=== PATIENT | male | born 1995 | race Caucasian/White ===

== ENCOUNTER 2018-09-24 13:54 | Emergency (ER) | payer MEDICAID ==
[2018-09-24 14:09] VITALS: BP 129/79
--- NOTE | 2018-09-24 15:05 | UC ---
Abdominal Pain Male HPI - HPI Summary HPI Summary: 23-year-old male comes in with a three-day complaint of epigastric pain and decreased appetite. Today's girlfriend noticed that his eyes appeared to be yellow. He's had a hard time telling whether or not the skin might be more yellow than usual. Said no prior history of this. The epigastric pain is mild. No fevers he has had an occasional chill. Has not nose any change in his urine. Said decreased stools. Has not seen any abnormal stools. No prior abdominal surgeries. No history of hepatitis is not on any medications. He does drink alcohol occasionally but not daily. - History of Current Complaint Chief Complaint: UCAbdominalPain Stated Complaint: YELLOW OF EYES NAUSEA Time Seen by Provider: 09/24/18 14:14 Pain Intensity: 3 - Allergies/Home Medications Allergies/Adverse Reactions: Allergies Allergy/AdvReac Type Severity Reaction Status Date / Time No Known Allergies Allergy Verified 09/24/18 14:08 Home Medications: Home Medications NK [No Home Medications Reported] 09/24/18 [History Confirmed 09/24/18] PMH/Surg Hx/FS Hx/Imm Hx Previously Healthy: Yes - Surgical History Surgical History: Yes Surgery Procedure, Year, and Place: left knee acl - Family History Known Family History: Positive: Non-Contributory - Social History Alcohol Use: Weekly Substance Use Type: Marijuana Smoking Status (MU): Never Smoked Tobacco Review of Systems All Other Systems Reviewed And Are Negative: Yes Constitutional: Positive: Chills Skin: Positive: Other - SEE HPI Eyes: Positive: Other - SEE HPI ENT: Positive: Negative Respiratory: Positive: Negative Cardiovascular: Positive: Negative Gastrointestinal: Positive: Abdominal Pain, Nausea Genitourinary: Positive: Negative Motor: Positive: Negative Neurovascular: Positive: Negative Musculoskeletal: Positive: Negative Neurological: Positive: Negative Psychological: Positive: Negative Is Patient Immunocompromised?: No Physical Exam Triage Information Reviewed: Yes Appearance: Well-Appearing, No Pain Distress, Well-Nourished Vital Signs: Initial Vital Signs Temp 98.2 F 09/24/18 14:04 Pulse 82 09/24/18 14:04 Resp 18 09/24/18 14:04 BP 129/79 09/24/18 14:04 Pulse Ox 100 09/24/18 14:04 Vital Signs Reviewed: Yes Eyes: Positive: Other: - MILD SCLERAL INJECTION ENT: Positive: Pharynx normal Neck exam: Normal Neck: Positive: Supple Respiratory: Positive: Lungs clear, Normal breath sounds, No respiratory distress Cardiovascular: Positive: RRR Abdomen Description: Positive: Soft, Other: - MILD TENDERNESS TO PALPATION IN EPIGASTRIUM. NO REBOUND. NO LOWER ABDOMINAL PAIN.. Negative: CVA Tenderness (R) , CVA Tenderness (L) Musculoskeletal Exam: Normal Musculoskeletal: Positive: Strength Intact, ROM Intact Neurological Exam: Normal Neurological: Positive: Alert, Muscle Tone Normal Psychological Exam: Normal Psychological: Positive: Age Appropriate Behavior Skin: Positive: Other - POSSIBLE MILD JAUNDICE Abd Pain Male Course/Dx - Course Course Of Treatment: Patient is from out of town and is visiting for the week. No prior history of jaundice or abdominal pain. At this time we've sent for labs CBC CMP total and direct bilirubin PT/INR lipase an acute hepatitis panel. Plan will be to discuss any abnormal lab results with the patient and determine appropriate follow-up. - Differential Dx/Clinical Impression Provider Diagnosis: Jaundice, Epigastric abdominal pain Discharge - Sign-Out/Discharge Documenting (check all that apply): Patient Departure All imaging exams completed and their final reports reviewed: No Studies - Discharge Plan Condition: Stable Disposition: HOME Patient Education Materials: Jaundice (ED), Epigastric Pain (ED) Referrals: [facility] [Outside] Additional Instructions: FOLLOW UP WITH YOUR DOCTOR IF NOT COMPLETELY IMPROVED. GET RECHECKED FOR ANY WORSENING OF YOUR CONDITION; PAIN, FEVER, YOU FEEL ILL OR QUESTIONS OR CONCERNS. - Billing Disposition and Condition Condition: STABLE Disposition: Home
--- NOTE | 2018-09-25 09:36 | UC ---
- Results/Orders Results/Orders: Called patient to review labs His number: Regarding his bilirubin is elevated - remaining labs are unremarkable. Here in town for 1 week and planning to go back to [place] in a few days - has a primary care physician in [facility] Told him of his results and recommended as long as he does not appear jaundice, symptoms resolved - no dark urine, light colored stools that he can follow up with his primary next week to repeat his labs and determine if further work up is appropriate. States he feels better. No longer vomiting. Course/Dx - Diagnoses Provider Diagnoses: Jaundice, Epigastric abdominal pain Discharge - Sign-Out/Discharge Documenting (check all that apply): Post-Discharge Follow Up All imaging exams completed and their final reports reviewed: No Studies - Discharge Plan Condition: Stable Disposition: HOME Patient Education Materials: Jaundice (ED), Epigastric Pain (ED) Referrals: [facility] [Outside] Additional Instructions: FOLLOW UP WITH YOUR DOCTOR IF NOT COMPLETELY IMPROVED. GET RECHECKED FOR ANY WORSENING OF YOUR CONDITION; PAIN, FEVER, YOU FEEL ILL OR QUESTIONS OR CONCERNS. - Billing Disposition and Condition Condition: STABLE Disposition: Home
== END 2018-09-24 15:22 | disposition home or self-care (01) ==
LOC: UCEAST 13:54
DX: R17 Unspecified jaundice (principal); R10.13 Epigastric pain
CPT/HCPCS: 99201; G0463

== ENCOUNTER 2018-09-26 12:16 | Emergency (ER) | payer MEDICAID ==
[2018-09-26 14:11] LABS: ABS Basophils 0 10^3/ul (0-0.2); ABS Eosinophils 0 10^3/ul (0-0.6); ABS Lymphocytes 1.4 10^3/ul (1.0-4.8); ABS Monocytes 0.6 10^3/ul (0-0.8); ABS Neutrophils 9.4 10^3/ul (1.5-7.7); ABS Nucleated RBC 0 10^3/ul; Eosinophil % 0.3 %; Hematocrit 49 % (42-52); Hemoglobin 16.4 g/dl (14.0-18.0); Lymphocyte % 12.6 %; Mean Corpuscular HGB Conc 34 g/dl (31-36); Mean Corpuscular Hemoglobin 30 pg (27-31); Mean Corpuscular Volume 89 fL (80-94); Mean Platelet Volume 8.4 fL (7.4-10.4); Nucleated Red Blood Cells % 0.2; Platelet Count 304 10^3/ul (150-450); Red Blood Count 5.47 10^6/ul (4.00-5.40); Red Cell Distribution Width 13 % (10.5-15); White Blood Count 11.5 10^3/ul (3.5-10.8)
[2018-09-26 14:28] LABS: ALT 13 U/L (7-52); AST 18 U/L (13-39); Albumin 5.6 g/dL (3.2-5.2); Albumin/Globulin Ratio 1.9 (1-3); Alkaline Phosphatase 57 U/L (34-104); Anion Gap 8 mmol/L (2-11); BUN/Creatinine Ratio 14.3 (8-20); Blood Urea Nitrogen 14 mg/dL (6-24); C Reactive Protein < 1.00 mg/L (<8.01); CO2 Carbon Dioxide 27 mmol/L (22-32); Calcium 10.8 mg/dL (8.6-10.3); Chloride 104 mmol/L (101-111); EGFR African American 116.8 (>60); EGFR Non-African American 96.6 (>60); Globulin 2.9 g/dL (2-4); Glucose 93 mg/dL (70-100); Potassium 3.8 mmol/L (3.5-5.0); Sodium 139 mmol/L (135-145); Total Protein 8.5 g/dL (6.4-8.9)
--- NOTE | 2018-09-26 15:12 | ED ---
Complex/Multi-Sys Presentation - HPI Summary HPI Summary: This patient is a 23 year old M presenting to ED with a chief complaint of abdominal discomfort s/p waking up this morning. The patient states that his bilirubin level was drawn 2 days ago at and it was 4.9. The patient rates the pain 2/10 in severity. Symptoms aggravated by nothing. Symptoms alleviated by nothing. Patient reports diarrhea (yesterday), fatigue, and slight yellowing of sclera. He also reports he made himself throw up this morning but his abdominal discomfort didnt subside. Patient denies CP and SOB. PMHx of Gilbert Syndrome. - History Of Current Complaint Chief Complaint: EDAbdPain Time Seen by Provider: 09/26/18 14:40 Hx Obtained From: Patient Onset/Duration: Sudden Onset, Lasting Days, Still Present Timing: Constant, Days Severity Currently: Mild - 2/10 Aggravating Factor(s): nothing Alleviating Factor(s): nothing Associated Signs And Symptoms: Positive: Vomiting, Diarrhea. Negative: SOB, Chest Pain - Allergies/Home Medications Allergies/Adverse Reactions: Allergies Allergy/AdvReac Type Severity Reaction Status Date / Time No Known Allergies Allergy Verified 09/26/18 12:31 PMH/Surg Hx/FS Hx/Imm Hx Endocrine/Hematology History: Denies: Hx Diabetes, Hx Thyroid Disease Cardiovascular History: Denies: Hx Hypertension Respiratory History: Denies: Hx Asthma, Hx Chronic Obstructive Pulmonary Disease (COPD) GI History: Denies: Hx Ulcer - Surgical History Surgery Procedure, Year, and Place: left knee acl Infectious Disease History: No Infectious Disease History: Denies: Hx Hepatitis, Hx Human Immunodeficiency Virus (HIV), Traveled Outside the [place] in Last 30 Days - Family History Known Family History: Positive: Other Family History: gilbert syndrome - Social History Alcohol Use: Weekly Substance Use Type: Reports: Marijuana Smoking Status (MU): Never Smoked Tobacco Review of Systems Positive: Fatigue Positive: Other - slight yellowing of sclera Negative: Chest Pain Negative: Shortness Of Breath Positive: Abdominal Pain - discomfort, Vomiting, Diarrhea. Negative: Nausea All Other Systems Reviewed And Are Negative: Yes Physical Exam - Summary Physical Exam Summary: Appearance: Well appearing, no pain distress Skin: warm, dry, reflects adequate perfusion Head/face: normal Eyes: EOMI, DODIE, mild jaundice ENT: normal Neck: supple, non-tender Respiratory: CTA, breath sounds present Cardiovascular: RRR, pulses symmetrical Abdomen: non-tender, soft Musculoskeletal: normal, strength/ROM intact Neuro: normal, sensory motor intact, A&Ox3 Triage Information Reviewed: Yes Vital Signs On Initial Exam: Initial Vitals Temp Pulse Resp BP Pulse Ox 99.0 F 111 16 136/85 98 09/26/18 12:27 09/26/18 12:27 09/26/18 12:27 09/26/18 12:27 09/26/18 12:27 Vital Signs Reviewed: Yes Diagnostics - Vital Signs Vital Signs Temp Pulse Resp BP Pulse Ox 09/26/18 14:45 82 154/99 100 09/26/18 14:43 84 100 09/26/18 14:01 99.0 F 76 15 136/71 100 09/26/18 12:27 99.0 F 111 16 136/85 98 - Laboratory Lab Results: Lab Results 09/26/18 09/26/18 09/26/18 Range/Units 13:57 13:57 13:57 WBC 11.5 H (3.5-10.8) 10^3/ul RBC 5.47 H (4.00-5.40) 10^6/ul Hgb 16.4 (14.0-18.0) g/dl Hct 49 (42-52) % MCV 89 (80-94) fL MCH 30 (27-31) pg MCHC 34 (31-36) g/dl RDW 13 (10.5-15) % Plt Count 304 (150-450) 10^3/ul MPV 8.4 (7.4-10.4) fL Neut % (Auto) 82.0 % Lymph % (Auto) 12.6 % Irwin % (Auto) 4.8 % Eos % (Auto) 0.3 % Baso % (Auto) 0.3 % Absolute Neuts (auto) 9.4 H (1.5-7.7) 10^3/ul Absolute Lymphs (auto) 1.4 (1.0-4.8) 10^3/ul Absolute Monos (auto) 0.6 (0-0.8) 10^3/ul Absolute Eos (auto) 0 (0-0.6) 10^3/ul Absolute Basos (auto) 0 (0-0.2) 10^3/ul Absolute Nucleated RBC 0 10^3/ul Nucleated RBC % 0.2 Sodium 139 (135-145) mmol/L Potassium 3.8 (3.5-5.0) mmol/L Chloride 104 (101-111) mmol/L Carbon Dioxide 27 (22-32) mmol/L Anion Gap 8 (2-11) mmol/L BUN 14 (6-24) mg/dL Creatinine 0.98 (0.67-1.17) mg/dL Est GFR ( Amer) 116.8 (>60) Est GFR (Non-Af Amer) 96.6 (>60) BUN/Creatinine Ratio 14.3 (8-20) Glucose 93 (70-100) mg/dL Lactic Acid 1.0 (0.5-2.0) mmol/L Calcium 10.8 H (8.6-10.3) mg/dL Total Bilirubin 2.60 H D (0.2-1.0) mg/dL AST 18 (13-39) U/L ALT 13 (7-52) U/L Alkaline Phosphatase 57 (34-104) U/L C-Reactive Protein < 1.00 (<8.01) mg/L Total Protein 8.5 (6.4-8.9) g/dL Albumin 5.6 H (3.2-5.2) g/dL Globulin 2.9 (2-4) g/dL Albumin/Globulin Ratio 1.9 (1-3) Lipase 19 (11.0-82.0) U/L Result Diagrams: 09/26/18 13:57 09/26/18 13:57 Lab Statement: Any lab studies that have been ordered have been reviewed, and results considered in the medical decision making process. - Ultrasound No standard instances Ultrasound Interpretation Completed By: Radiologist Summary of Ultrasound Findings: Abdomen US reveals negative exam. Complex Multi-Symp Course/Dx Assessment/Plan: This patient is a 23 year old M presenting to ED with a chief complaint of abdominal discomfort s/p waking up this morning. The patient states that his bilirubin level was drawn 2 days ago at and it was 4.9. UA obtained. Abdomen US reveals negative exam. Patient will be discharged with prescription for Ondansetron and follow up from [facility] physician referral. The patient is agreeable with this plan. - Diagnoses Differential Diagnoses/HQI/PQRI: Other - jaundice Provider Diagnoses: Gilbert syndrome Discharge - Sign-Out/Discharge Documenting (check all that apply): Patient Departure - discharge Patient Received Moderate/Deep Sedation with Procedure: No - Discharge Plan Condition: Stable Disposition: HOME Prescriptions: Ondansetron ODT TAB* [Zofran 4 MG Odt TAB*] 4 mg PO Q8H PRN #20 tab.odt MDD 3 PRN Reason: Nausea Patient Education Materials: Acute Abdominal Pain (ED) Referrals: [facility] PHYSICIAN REFERRAL [Outside] - 3 Days Additional Instructions: Follow up with your primary care physician or [facility] physician referral in the next three days. - Billing Disposition and Condition Condition: STABLE Disposition: Home - Attestation Statements Document Initiated by Scribe: Yes Documenting Scribe: David Moreno Provider For Whom Aaron is Documenting (Include Credential): Tru Carter MD Scribe Attestation: David Solorzano scribed for Tru Carter MD on 09/26/18 at 1834. Scribe Documentation Reviewed: Yes Provider Attestation: The documentation as recorded by the David mcneal accurately reflects the service I personally performed and the decisions made by Tru palomino MD Status of Scribe Document: Viewed
[2018-09-26 16:50] LABS: Indirect Bilirubin 2.2 mg/dL (0.3-1.0)
[2018-09-26 17:13] LABS: Urine Appearance Cloudy; Urine Bacteria Absent (Absent); Urine Bilirubin Negative (Negative); Urine Blood 2+ (Negative); Urine Color Yellow; Urine Glucose Negative (Negative); Urine Ketones 1+ (Negative); Urine Nitrite Negative (Negative); Urine Protein Negative (Negative); Urine Red Blood Cell Trace(0-2/hpf) (Absent); Urine Specific Gravity 1.024 (1.010-1.030); Urine Urobilinogen Negative (Negative); Urine White Blood Cell Trace(0-5/hpf) (Absent)
[2018-09-26 18:05] VITALS: BP 116/68
== END 2018-09-26 18:05 | disposition home or self-care (01) ==
LOC: ED 12:16
DX: E80.4 Gilbert syndrome (principal)
CPT/HCPCS: 36415; 76705; 80053; 81003; 81015; 82247; 82248; 83605; 83690; 85025; 86140; 87086; 99283